=== PATIENT | male | born 1995 | race Caucasian/White ===

== ENCOUNTER 2022-09-12 15:58 | Day surgery (SDC) | payer OTHER, MEDICAID, SELFPAY ==
[2022-09-12] VITALS (10 sets, daily range): BP systolic 99–127; BP diastolic 58–83; PULSE 83–122; RESP 11–19; TEMP 36.1–36.6; O2SAT 96–100; BMI 19.1
--- NOTE | 2022-09-12 17:25 | PM.HP.1 ---
History of Present Illness History of Present Illness Date Patient Seen: 09/12/22 Time Patient Seen: 17:26 Chief complaint: G TUBE REPLACEMENT Narrative: The patient is a 26-year-old man who had an anoxic brain injury over 1 year ago and has a G-tube that was dislodged yesterday. A small Villar catheter was able to be placed to hold the tract. Full-size G-tube was not able to be placed. Patient History Medical History (Updated 09/12/22 @ 17:28 by Blue Sadler MD) Cardiac arrest TBI (traumatic brain injury) Meds Home Medications and Allergies Home Medications Medication Instructions Recorded Confirmed Type carvedilol 3.125 mg tablet See Rx Instructions .Route .COMPLEX 09/12/22 09/12/22 History Allergies Allergy/AdvReac Type Severity Reaction Status Date / Time No Known Drug Allergies Allergy Verified 09/12/22 17:28 Exam Narrative Exam Narrative: There is a gastrostomy tube in the left upper quadrant with a Villar catheter and the tract Assessment & Plan Assessment and plan (1) Dislodged gastrostomy tube: Status: Acute Plan Attempts were made to replace a gastrostomy to at the bedside but the tract appeared to be too scarred down to allow the larger gastrostomy tube. Dilators were used to dilate the tract but again the tube could not be fed into the stomach. The patient will be taken to the operating room for a revision of the percutaneous endoscopic gastrostomy tube. Time Spent With Patient Critical Care time: I spent a total of [] minutes of critical care time on this patient's care today; this time is exclusive of procedural time.
[2022-09-12 17:33] LABS: COVID19 -Nasal RAPID Negative (Negative)
[2022-09-12] MEDS: LACTATED RINGERS 1,000 ML 42 ML IV (17:46)
--- NOTE | 2022-09-12 18:27 | PM.OP.1 ---
Operative Date/Time/Diagnoses Date of procedure: 09/12/22 Time of procedure: 18:27 Pre-op diagnosis: Dislodged gastrostomy tube Post-op diagnosis: same Procedure & Clinicians Procedure: Percutaneous endoscopic gastrostomy tube placement Same procedure as scheduled: Yes Surgeon: Blue Sadler Operative Notes Procedure in detail: The patient was brought to the operating room and remained on the gurney in the supine position. A time-out was performed. Mac was induced. The abdomen was prepped and draped in the usual fashion and a time-out was performed. We started with an EGD. The endoscope was inserted into the stomach and the stomach was fully insufflated with air. We could see the old gastrostomy tube site in the anterior abdominal wall. The wire was easily passed through the skin incision and into the stomach under direct vision. A snare was used to grasp the wire and brought out through the patient's mouth. The wire was then attached to the the PEG tube and the PEG tube was pulled into the stomach and positioned appropriately. The endoscope was reinserted and a photograph was taken of the bumper within the gastric lumen. The scope was then removed from the patient's mouth and the distal end of the PEG tube was trimmed and the bumper was applied. The clasp was applied followed by the cap. A dressing was applied around PEG site. The patient was awakened and brought to recovery room. Post-operative Condition: stable Disposition: PACU
--- NOTE | 2022-09-12 18:41 | SUR.PHASEI ---
Patient received from OR to PACU in stable condition s/p PEG placement; vss; appears to be in no distress. RR even and unlabored. Patient is at baseline of non-verbal; unable to move himself. Turned patient to left side and placed pillows between legs and under back side; HOB elevated.
--- NOTE | 2022-09-12 19:07 | SUR.PHASEI ---
Attempted to call report at 1850 but nursing staff in the middle of shift report. Patient remains stable and vss. Mother at bedside.
--- NOTE | 2022-09-13 06:29 | SUR.OPER ---
Late Entry-Patient and mother to Preop area for Dr. Sadler to evaluate feeding tube that had been pulled out. Dr. Sadler attempted to replace and after numerous attempts decided patient needs to go to the OR.
[2022-09-13 08:34] VITALS: BP 136/81; PULSE 107; RESP 18; TEMP 36.7; O2SAT 94
--- NOTE | 2022-09-13 12:17 | PC.NURSE ---
Pt is to discharge at approx. 1530. Pt's w/c is being brought over from [facility] in a w/c van and then Pt will be discharged out for the [address] [place] with his Mother/Caregiver. Went over d/c instructions with Mother-no changes to meds. Reviewed stroke education. Provided education on peg tube care-mother provides all care to peg tube, trach, and condom cath. IV removed. Mother denies further questions and we will continue to provide supportive care for all needs until d/c.
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
--- NOTE | 2022-09-13 15:34 | PC.NURSE ---
Pt out via personal w/c with Mother and all belongings.
== END 2022-09-13 15:34 | disposition home or self-care (01) ==
LOC: PAC 16:43 → AC 16:44
PROVIDERS: PCP Student in an Organized Health Care Education/Training Program; Referring Provider Surgery; Visit Provider Surgery
PROC: 0DH63UZ Insertion of Feeding Device into Stomach, Percutaneous Approach (ICD-10-PCS; CPT 43246; principal; 2022-09-12 18:00)
DX: T85.528A Displacement of other gastrointestinal prosthetic devices, implants and grafts, initial encounter (principal); Z87.820 Personal history of traumatic brain injury; Z20.822 Contact with and (suspected) exposure to COVID-19
CPT/HCPCS: 43246; 87635; C9803; J3010

== ENCOUNTER 2024-07-25 09:52 | Day surgery (SDC) | payer MEDICARE, MEDICAID, SELFPAY ==
[2022-09-12 21:48] VITALS: BMI 19.1
[2024-07-25 12:03] VITALS: BMI 17.4
[2024-07-25] MEDS: LACTATED RINGERS 1,000 ML 42 ML IV (12:03)
[2024-07-25 12:38] VITALS: BP 133/77; PULSE 102; RESP 18; TEMP 37.9; O2SAT 99
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
[2024-07-25 13:43] VITALS: BP 102/63; PULSE 80; RESP 15; TEMP 36.3; O2SAT 96
[2024-07-25 13:49] VITALS: BP 102/63; PULSE 79; RESP 15; TEMP 36.3; O2SAT 96
--- NOTE | 2024-07-25 13:50 | PM.OP.1 ---
Operative Date/Time/Diagnoses Date of procedure: 07/25/24 Time of procedure: 13:50 Pre-op diagnosis: Malfunctioning gastrostomy tube Post-op diagnosis: same Procedure & Clinicians Procedure: Gastrostomy tube exchange Same procedure as scheduled: Yes Surgeon: Blue Sadler Anesthesia Type: MAC +/- Operative Notes Procedure in detail: The patient is a 28-year-old gentleman who suffered an anoxic brain injury in 2020 and has had a permanent gastrostomy tube. The tube recently fractured and he came in for a replacement. The tube that fractured had been in since September of 2022 and was a PEG tube. That procedure was performed as a PEG tube because the existing tract was stenotic and a new tube could not be passed through the tract. For that reason he was consented for possible percutaneous endoscopic gastrostomy procedure today. Miguel was brought into the endoscopy room. A time-out was performed. Mac was administered. The existing PEG tube was removed. The inner bumper was completely removed. Next, a 22 Romanian gastrostomy tube was lubricated and inserted through the skin opening in his slightly cephalad orientation and passed into the stomach with minimal resistance. A Arcadio syringe was attached to the main port and aspiration of gastric contents was visualized in the lumen of the tube. Next a proximally 7 mL of sterile water were injected into the balloon and the external bumper was slid down to the skin level. Dry gauze was applied around the device. The patient was awakened and brought to recovery EBL: 1 mL Post-operative Condition: stable Disposition: PACU
[2024-07-25 13:55] VITALS: BP 102/55; PULSE 79; RESP 12; TEMP 36.3; O2SAT 96
== END 2024-07-25 14:07 | disposition home or self-care (01) ==
PROVIDERS: PCP Student in an Organized Health Care Education/Training Program; Referring Provider Surgery; Visit Provider Surgery
PROC: 0DH63UZ Insertion of Feeding Device into Stomach, Percutaneous Approach (ICD-10-PCS; CPT 43246; principal; 2024-07-25 13:00)
DX: K94.23 Gastrostomy malfunction (principal)
CPT/HCPCS: 43762; J2250; J2704; J3010